=== PATIENT | female | born 1945 | race Hispanic/Latino ===

== ENCOUNTER 2023-09-01 10:18 | Emergency (ER) | payer OTHER ==
[~2023-09-01] VITALS: Ht 170.2 cm; Wt 64.4 kg
[2023-09-01 11:14] VITALS: BP 132/62; PULSE 82; RESP 18
[2023-09-01] MEDS: PHENAZOPYRIDINE HCL 200 MG TABLET PO ONE (11:58)
[2023-09-01 12:21] LABS: APPEARANCE,URINE CLEAR (CLEAR); BILIRUBIN,URINE NEGATIVE (NEGATIVE); COLOR,URINE LIGHT-YELLOW (YELLOW); GLUCOSE, URINE (UA) >=1000 mg/dL (NEGATIVE); KETONES,URINE NEGATIVE (NEGATIVE); LEUKOCYTE ESTERASE ,URINE 250 Leu/uL (NEGATIVE); NITRATE,URINE NEGATIVE (NEGATIVE); OCCULT BLOOD,URINE NEGATIVE (NEGATIVE); PROTEIN,URINE NEGATIVE (NEGATIVE); UROBILINOGEN,URINE 0.2 mg/dL (0.2-1.0)
[2023-09-01 12:22] LABS: ADD UA MICROSCOPIC YES
[2023-09-01 12:26] LABS: BACTERIA,URINE MOD /HPF (None Seen); MUCUS,URINE RARE LPF (None Seen); SQUAMOUS EPITHELIAL CELL,UR RARE /HPF (0-2); WBC,URINE 51-100 /HPF (0-1)
[2023-09-01] MEDS ORDERED: PHEN-847 PO (12:43)
[2023-09-01] MEDS ORDERED: ONDA4TAB10 PO (12:43)
[2023-09-01] MEDS ORDERED: AMOX1TAB16 PO (12:43)
[2023-09-01] MEDS: CEFTRIAXONE 1G VIAL IM ONE (12:52)
[2023-09-01] MEDS ORDERED: FLUC150T48 PO (12:58)
[2023-09-01] MEDS ORDERED: CLOT15CR23 TP (12:58)
== END 2023-09-01 13:03 | disposition home or self-care (01) ==
LOC: EDH 10:18
DX: N39.0 Urinary tract infection, site not specified (principal); E78.00 Pure hypercholesterolemia, unspecified; I10 Essential (primary) hypertension
CPT/HCPCS: 99283; 87077; 87088; 87186; 81001; 96372; J0696